=== PATIENT | male | born 1990 | race Caucasian/White ===

== ENCOUNTER 2017-09-27 22:47 | Emergency (ER) | payer MEDICARE, OTHER ==
[2017-09-28] MEDS: HYDROCODONE/APAP (5/325) TAB PO (01:25)
[2017-09-28] MEDS: SILVER SULFADIAZINE 1% 25 GM CR TOP (01:25)
== END 2017-09-28 01:40 | disposition home or self-care (01) ==
LOC: E/R 22:47
DX: T24.232A Burn of second degree of left lower leg, initial encounter (principal); I10 Essential (primary) hypertension; R40.2142 Coma scale, eyes open, spontaneous, at arrival to emergency department; R40.2252 Coma scale, best verbal response, oriented, at arrival to emergency department; R40.2362 Coma scale, best motor response, obeys commands, at arrival to emergency department; X16.XXXA Contact with hot heating appliances, radiators and pipes, initial encounter; Y92.9 Unspecified place or not applicable; Z87.891 Personal history of nicotine dependence; Z79.84 Long term (current) use of oral hypoglycemic drugs
CPT/HCPCS: 16000; 99284-25

== ENCOUNTER 2017-10-21 15:07 | Emergency (ER) | payer MEDICARE, OTHER | END 2017-10-21 17:00 | disposition home or self-care (01) | LOC: FTE 15:07 | DX: M25.531 Pain in right wrist (principal); M25.522 Pain in left elbow; M25.572 Pain in left ankle and joints of left foot; M54.5 Low back pain; I10 Essential (primary) hypertension; Z79.84 Long term (current) use of oral hypoglycemic drugs; Z87.891 Personal history of nicotine dependence | CPT/HCPCS: 72100; 73080-LT; 73110-RT; 73610; 99284-25 ==

== ENCOUNTER 2017-12-19 18:36 | Emergency (ER) | payer MEDICARE, OTHER | END 2017-12-19 21:10 | disposition home or self-care (01) | LOC: FTE 18:36 | DX: R51 Headache (principal); M54.5 Low back pain; I10 Essential (primary) hypertension | CPT/HCPCS: 99284 ==

== ENCOUNTER 2018-09-01 20:42 | Emergency (ER) | payer MEDICARE, OTHER ==
[2018-09-02] MEDS ORDERED: GUAIFENESIN/DM 5ML CUP PO (03:30)
[2018-09-02] MEDS ORDERED: GUAIFENESIN 20 MG/ML 5ML CUP PO (04:00)
[2018-09-02] MEDS: IBUPROFEN 800 MG TAB PO (04:10)
[2018-09-02] MEDS: GUAIFENESIN/DM 5ML CUP PO (04:11)
== END 2018-09-02 04:13 | disposition home or self-care (01) ==
LOC: FTE 20:42
DX: J01.20 Acute ethmoidal sinusitis, unspecified (principal); I10 Essential (primary) hypertension; H66.93 Otitis media, unspecified, bilateral
CPT/HCPCS: 99283